=== PATIENT | female | born 1945 | race Two or more races ===

== ENCOUNTER 2018-06-07 11:55 | Inpatient (IN) | payer MEDICARE, MEDICAID ==
[~2018-06-07] VITALS: Ht 165.1 cm; Wt 74.0 kg
[2018-06-07] MEDS ORDERED: SODIUM CHLORIDE FLUSH 10ML SYR IVF ONE (13:30)
[2018-06-07 13:39] LABS: BASOPHILS # (AUTO) 0.02 x10^3/uL (0-0.1); BASOPHILS % (AUTO) 0 % (0-1); EOSINOPHILS # (AUTO) 0.03 x10^3/uL (0-0.4); EOSINOPHILS % (AUTO) 0 % (1-7); LYMPHOCYTES % (AUTO) 19 % (22-44); MD NO; MEAN CORPUSCULAR HEMOGLOBIN 29.2 pg (27.0-34.8); MEAN CORPUSCULAR HGB CONC 33.5 g/dL (32.4-35.8); MEAN CORPUSCULAR VOLUME 87.1 fL (80-100); MEAN PLATELET VOLUME 8.1 fL (7.4-10.4); MONOCYTES # (AUTO) 0.32 x10^3/uL (0.2-0.8); MONOCYTES % (AUTO) 3 % (2-9); NEUTROPHILS # (AUTO) 7.26 x10^3/uL (1.8-6.8); NEUTROPHILS % (AUTO) 77 % (42-75); PLATELET COUNT 208 x10^3/uL (130-400); RED BLOOD COUNT 4.91 x10^6/uL (3.82-5.3); RED CELL DISTRIBUTION WIDTH 14.4 % (9.6-15.2)
[2018-06-07 13:46] LABS: ANION GAP 8 mmol/L (5-15); CALCIUM 8.7 mg/dL (8.5-10.1); CHLORIDE 109 mmol/L (98-107); CREATININE 0.47 mg/dL (0.55-1.02)
[2018-06-07] MEDS ORDERED: DOCUSATE 100 MG CAPSULE PO PRN (14:30)
[2018-06-07] MEDS ORDERED: POLYETHYLENE GLYCOL 17 GM PACKET PO PRN (14:30)
[2018-06-07] MEDS ORDERED: ONDANSETRON 2MG/ML, 2ML IVPush PRN (14:30)
[2018-06-07] MEDS ORDERED: PROMETHAZINE 25 MG/ML, 1ML IM PRN (14:30)
[2018-06-07] MEDS ORDERED: HYDROcodone/APAP 5/325 TABLET PO PRN (14:30)
[2018-06-07] MEDS ORDERED: ACETAMINOPHEN 325 MG TABLET PO PRN (14:30)
[2018-06-07] MEDS ORDERED: BISACODYL 10 MG SUPP PR PRN (14:30)
[2018-06-07] MEDS ORDERED: ONDANSETRON ODT 4 MG PO PRN (14:30)
[2018-06-07] MEDS ORDERED: morphine SULFATE 10 MG/ML, 1ML IVPush PRN (14:30)
[2018-06-07] MEDS ORDERED: LABETALOL 5MG/ML, 20ML IVPush PRN (14:30)
[2018-06-07] MEDS ORDERED: hydrALAzine 20 MG/ML, 1ML IVPush PRN (14:30)
[2018-06-07] MEDS ORDERED: FLUO10TA PO (14:42)
[2018-06-07] MEDS ORDERED: IBUP-1223 PO (14:42)
[2018-06-07] MEDS ORDERED: LISI1TAB3 PO (14:42)
[2018-06-07] MEDS: SODIUM CHLORIDE 0.9% 1,000 ML IV SCH (15:14)
[2018-06-07 15:29] LABS: FREE T4 (FREE THYROXINE) 1.2 ng/dL (0.76-1.46); THYROID STIMULATING HORMONE 0.955 mIU/L (0.358-3.740)
[2018-06-07 15:30] VITALS: BP 127/77
[2018-06-07] MEDS ORDERED: FENTANYL PF 100 MCG/2ML ONE ×2 (17:37→18:57)
[2018-06-07] MEDS ORDERED: MIDAZOLAM 1 MG/ML, 2ML ONE (17:37)
[2018-06-07] MEDS ORDERED: DEXAMETHASONE 4 MG/ML, 1ML ONE ×2 (17:37)
[2018-06-07] MEDS ORDERED: PROPOFOL 10 MG/ML, 20ML ONE (17:37)
[2018-06-07] MEDS ORDERED: CEFAZOLIN 1,000 MG ONE ×2 (17:37)
[2018-06-07] MEDS ORDERED: ONDANSETRON 2MG/ML, 2ML ONE (17:37)
[2018-06-07] MEDS ORDERED: ROCURONIUM 10MG/ML,5ML ONE (17:38)
[2018-06-07] MEDS ORDERED: SUCCINYLCHOLINE 20 MG/ML, 10ML ONE (17:38)
[2018-06-07] MEDS ORDERED: LIDOCAINE-MPF 2% ,5ML ONE (17:39)
[2018-06-07] MEDS ORDERED: LABETALOL 5MG/ML, 20ML IV PRN (18:30)
[2018-06-07] MEDS ORDERED: HYDROmorphone 1 MG/ML, 1ML IV PRN (18:30)
[2018-06-07] MEDS ORDERED: MEPERIDINE/PF 25MG/0.5ML IVPush PRN (18:30)
[2018-06-07] MEDS ORDERED: DIAZEPAM 5 MG/ML, 2ML IVPush PRN (18:30)
[2018-06-07] MEDS ORDERED: OXYcodone 5 MG/5 ML ORAL.SOL UDC PO PRN (18:30)
[2018-06-07] MEDS ORDERED: METOCLOPRAMIDE 5 MG/ML, 2ML IV PRN (18:30)
[2018-06-07] MEDS ORDERED: hydrALAzine 20 MG/ML, 1ML IV PRN (18:30)
[2018-06-07] MEDS ORDERED: OXYcodone 5 MG/5 ML ORAL.SOL UDC ONE (18:57)
[2018-06-07] MEDS ORDERED: CEFAZOLIN PMX 2GM/50ML 50 ML IVPB SCH (19:00)
[2018-06-07] MEDS: FENTANYL PF 100 MCG/2ML IV PRN ×2 (19:04→19:11)
[2018-06-07] MEDS ORDERED: HYDROmorphone 2 MG/ML, 1ML ONE (19:13)
[2018-06-07 20:44] VITALS: BP 117/52
[2018-06-08 00:23] VITALS: BP 115/78
[2018-06-08] MEDS: CEFAZOLIN 2,000 MG in SODIUM CHLORIDE 0.9% 50 ML IV SCH ×2 (00:28→08:42)
[2018-06-08 04:24] VITALS: BP 112/70
[2018-06-08] MEDS: SODIUM CHLORIDE 0.9% 1,000 ML IV SCH (05:40)
[2018-06-08] MEDS ORDERED: ENOXAPARIN 40 MG/0.4 ML SQ SCH (06:00)
[2018-06-08 06:28] LABS: BASOPHILS # (AUTO) 0.01 x10^3/uL (0-0.1); BASOPHILS % (AUTO) 0 % (0-1); EOSINOPHILS % (AUTO) 0 % (1-7); LYMPHOCYTES # (AUTO) 0.78 x10^3/uL (1-3.4); LYMPHOCYTES % (AUTO) 11 % (22-44); MD NO; MEAN CORPUSCULAR HEMOGLOBIN 29.8 pg (27.0-34.8); MEAN CORPUSCULAR VOLUME 87.9 fL (80-100); MEAN PLATELET VOLUME 8.5 fL (7.4-10.4); MONOCYTES # (AUTO) 0.15 x10^3/uL (0.2-0.8); MONOCYTES % (AUTO) 2 % (2-9); NEUTROPHILS # (AUTO) 6.15 x10^3/uL (1.8-6.8); NEUTROPHILS % (AUTO) 87 % (42-75); PLATELET COUNT 194 x10^3/uL (130-400); RED BLOOD COUNT 4.45 x10^6/uL (3.82-5.3); RED CELL DISTRIBUTION WIDTH 14.4 % (9.6-15.2)
[2018-06-08 06:32] LABS: ALBUMIN 2.7 g/dL (3.4-5.0); ANION GAP 8 mmol/L (5-15); CALCIUM 8.3 mg/dL (8.5-10.1); CHLORIDE 111 mmol/L (98-107)
[2018-06-08 06:35] LABS: ALANINE AMINOTRANSFERASE 35 U/L (12-78); ALKALINE PHOSPHATASE 54 U/L (45-117); BILIRUBIN,TOTAL 0.5 mg/dL (0.2-1.0); CHOL/HDL RATIO 3.4; CHOLESTEROL, TOTAL 158 mg/dL (140-239); CREATININE 0.43 mg/dL (0.55-1.02); HDL CHOL % 29 % (28-40); HDL CHOLESTEROL (DIRECT) 46 mg/dL (40-60); LDL CHOLESTEROL,CALCULATED 102 mg/dL (54-169); LDL/HDL RATIO 2.2 (0.5-3.0); TOTAL PROTEIN 6.9 g/dL (6.4-8.2); TRIGLYCERIDES 50 mg/dL (50-200); VLDL CHOLESTEROL 10 mg/dL (0-25)
[2018-06-08 07:46] VITALS: BP 98/62
[2018-06-08] MEDS ORDERED: IBUPROFEN 200 MG TABLET PO PRN (11:00)
[2018-06-08] MEDS ORDERED: ENOX40SY4 SQ (11:57)
[2018-06-08 13:24] VITALS: BP 100/59
== END 2018-06-08 14:17 | disposition home health service (06) | DRG 480 ==
LOC: OR 14:02 → EDIP 14:18 → 4NOR 14:51 → DCLOUNGE 06-08 13:55
PROVIDERS: ADMIT Internal Medicine; ATTEND Internal Medicine
PROC: 0QH634Z Insertion of Internal Fixation Device into Right Upper Femur, Percutaneous Approach (ICD-10-PCS; principal; 2018-06-07 17:15)
DX: S72.001A Fracture of unspecified part of neck of right femur, initial encounter for closed fracture (principal); J96.01 Acute respiratory failure with hypoxia; E44.0 Moderate protein-calorie malnutrition; M89.8X8 Other specified disorders of bone, other site; W01.0XXA Fall on same level from slipping, tripping and stumbling without subsequent striking against object, initial encounter; F41.9 Anxiety disorder, unspecified; G89.29 Other chronic pain; M06.9 Rheumatoid arthritis, unspecified; I10 Essential (primary) hypertension; Y93.01 Activity, walking, marching and hiking; Z88.8 Allergy status to other drugs, medicaments and biological substances; Z88.6 Allergy status to analgesic agent; Z88.1 Allergy status to other antibiotic agents; Z88.5 Allergy status to narcotic agent; Z79.899 Other long term (current) drug therapy; Z68.27 Body mass index [BMI] 27.0-27.9, adult; Y92.89 Other specified places as the place of occurrence of the external cause; Y99.8 Other external cause status
CPT/HCPCS: 36415; 71045; 76001; 80048; 80053; 80061; 82040; 83036; 83735; 84439; 84443; 85025; 93005; C1713; G0378; J0690; J1100; J1170; J1650; J2250; J2405; J2704; J3010; J3490; C1769; J0330; J7030

== ENCOUNTER 2019-09-12 21:12 | Emergency (ER) | payer MEDICARE, MEDICAID ==
[~2019-09-12] VITALS: Ht 165.1 cm; Wt 75.0 kg
[~2019-09-12 21:12] MED LIST: ENOX40SY4 SQ; FLUO10TA PO; IBUP-1223 PO; LISI1TAB23 PO
[2019-09-12] MEDS ORDERED: SODIUM CHLORIDE 0.9% 1,000ML IVBOLUS ONE (22:00)
[2019-09-12] MEDS ORDERED: SODIUM CHLORIDE FLUSH 10ML SYR IVF ONE (22:00)
[2019-09-12] MEDS ORDERED: PLEASE ENTER HEIGHT AND WEIGHT MC SCH (22:00)
[2019-09-12] MEDS ORDERED: MAALOX/HYOSCYAMINE/LIDOCAINE 45 ML BTL PO ONE (22:00)
[2019-09-12] MEDS ORDERED: ONDANSETRON 2MG/ML, 2ML IVPush ONE (22:00)
[2019-09-12 22:10] LABS: BASOPHILS # (AUTO) 0.01 x10^3/uL (0-0.1); BASOPHILS % (AUTO) 0 % (0-1); EOSINOPHILS % (AUTO) 0 % (1-7); LYMPHOCYTES # (AUTO) 0.69 x10^3/uL (1-3.4); LYMPHOCYTES % (AUTO) 16 % (22-44); MD NO; MEAN CORPUSCULAR HEMOGLOBIN 29.6 pg (27.0-34.8); MEAN CORPUSCULAR HGB CONC 33.9 g/dL (32.4-35.8); MEAN CORPUSCULAR VOLUME 87.4 fL (80-100); MEAN PLATELET VOLUME 7.7 fL (7.4-10.4); MONOCYTES # (AUTO) 0.23 x10^3/uL (0.2-0.8); MONOCYTES % (AUTO) 5 % (2-9); NEUTROPHILS # (AUTO) 3.44 x10^3/uL (1.8-6.8); NEUTROPHILS % (AUTO) 79 % (42-75); PLATELET COUNT 188 x10^3/uL (130-400); RED BLOOD COUNT 5.06 x10^6/uL (3.82-5.3); RED CELL DISTRIBUTION WIDTH 14.4 % (9.6-15.2)
[2019-09-12 22:22] LABS: ALANINE AMINOTRANSFERASE 35 U/L (12-78); ALBUMIN 2.8 g/dL (3.4-5.0); ANION GAP 5 mmol/L (5-15); CALCIUM 8.4 mg/dL (8.5-10.1); CHLORIDE 109 mmol/L (98-107); CREATININE 0.47 mg/dL (0.55-1.02)
[2019-09-12 22:24] LABS: ALKALINE PHOSPHATASE 72 U/L (45-117); TOTAL PROTEIN 7.5 g/dL (6.4-8.2)
[2019-09-12] MEDS ORDERED: ONDANSETRON 2MG/ML, 2ML ONE (22:53)
[2019-09-12] MEDS ORDERED: MAALOX/HYOSCYAMINE/LIDOCAINE 45 ML BTL ONE (23:52)
--- NOTE | 2019-09-13 00:16 | NUR ---
Pt reports her nausea has greatly improved after IV Zofran and IVF. Pt was able to consume her GI cocktail without further N/V. Pt ambulated to bathroom and back.
[2019-09-13 01:02] VITALS: BP 130/90
== END 2019-09-13 01:12 | disposition home or self-care (01) ==
LOC: ED 09-13 00:10
DX: A09 Infectious gastroenteritis and colitis, unspecified (principal); R11.2 Nausea with vomiting, unspecified; I10 Essential (primary) hypertension; M06.9 Rheumatoid arthritis, unspecified
CPT/HCPCS: 36415; 80053; 83690; 85025; 96361; 96374; 99283; J2405; J7030

== ENCOUNTER 2020-07-22 01:10 | Observation (INO) | payer MEDICARE, MEDICAID ==
[~2020-07-22] VITALS: Ht 165.1 cm; Wt 75.0 kg
--- NOTE | 2020-07-22 01:16 | NUR ---
pt came into ed tonight via [facility] for abdominal pain, gassy and cramping for 3 days. pt denies vomiting/diarrhea but states "i have an upset stomach" denies gu changes. pt states she has a hx of gastritis, no abdominal sx history. lower quadrant pain, primarily on the right side. wctm pt placed on spo2/bp/ecg monitoring. joe andrew at bs for eval and poc. assisted to restroom to obtain urine sample at this time.
[2020-07-22] MEDS ORDERED: SODIUM CHLORIDE FLUSH 10ML SYR IVF ONE (01:30)
--- NOTE | 2020-07-22 01:36 | NUR ---
bedside report to Serina CAO, pt care transferred at this time.
--- NOTE | 2020-07-22 01:39 | NUR ---
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
[2020-07-22 02:11] LABS: BASOPHILS % (AUTO) 0 % (0-1); EOSINOPHILS % (AUTO) 0 % (1-7); LYMPHOCYTES % (AUTO) 17 % (22-44); MEAN CORPUSCULAR HEMOGLOBIN 29.7 pg (27.0-34.8); MEAN CORPUSCULAR HGB CONC 34.3 g/dL (32.4-35.8); MEAN PLATELET VOLUME 8.3 fL (7.4-10.4); MONOCYTES % (AUTO) 6 % (2-9); NEUTROPHILS % (AUTO) 77 % (42-75); PLATELET COUNT 214 x10^3/uL (130-400); RED BLOOD COUNT 5.04 x10^6/uL (3.82-5.3)
[2020-07-22 02:12] LABS: MICROSCOPIC INDICATED
[2020-07-22 02:14] LABS: MD NO
--- NOTE | 2020-07-22 02:14 | NUR ---
CT PENDING LAB/CREATINE.
[2020-07-22 02:20] LABS: ALANINE AMINOTRANSFERASE 35 U/L (12-78); ALBUMIN 3.2 g/dL (3.4-5.0); ANION GAP 7 mmol/L (5-15); CALCIUM 8.9 mg/dL (8.5-10.1); CHLORIDE 107 mmol/L (98-107); CREATININE 0.49 mg/dL (0.55-1.02)
[2020-07-22 02:22] LABS: ALKALINE PHOSPHATASE 86 U/L (45-117); BILIRUBIN,TOTAL 1.4 mg/dL (0.2-1.0); TOTAL PROTEIN 8.1 g/dL (6.4-8.2)
[2020-07-22] MEDS ORDERED: OMNIPAQUE 350 MG/ML, 100ML BOTTLE ONE (02:51)
--- NOTE | 2020-07-22 03:13 | NUR ---
BREAK RN: PT. RETURNED FROM CT; TO BR VIA W/C AND BACK TO [facility]. ALL MONITORS REPLACED. REPORT BACK TO KILEY KURTZ TO RE-ASSUME CARE OF PT.
[2020-07-22] MEDS ORDERED: CEFTRIAXONE PMX 1GM/50ML 50 ML IV ONE (04:00)
--- NOTE | 2020-07-22 04:10 | NUR ---
PER DR DE LA ROSA NO CULTURES PRIOR TO ABX
[2020-07-22] MEDS ORDERED: CEFTRIAXONE PMX 1GM/50ML 50 ML ONE (04:11)
--- NOTE | 2020-07-22 04:16 | NUR ---
ABX STARTED AT THIS TIME
[2020-07-22] MEDS ORDERED: EPINEPHRINE 1 MG/ML, 1ML ONE (04:27)
[2020-07-22] MEDS ORDERED: BUPIVACAINE/PF 0.5% ONE (04:27)
--- NOTE | 2020-07-22 04:53 | NUR ---
ABX FINISHED, MED REC DONE AND PHARMACY VERIFIED WITH PT AND FAMILY
--- NOTE | 2020-07-22 05:00 | NUR ---
REPORT TO SHYANNE FROM OR ALL QUESTIONS ADDRESSED.
[2020-07-22] MEDS ORDERED: BUPIVACAINE/PF-EPI 0.5% 1:200K INFIL ONE ×2 (05:42→07:32)
[2020-07-22 06:24] VITALS: BP 151/96
--- NOTE | 2020-07-22 06:24 | NUR ---
PT RESTING ON GURNEY FAMILY AT BEDSIDE AWAITING OR TIME.
[2020-07-22] MEDS ORDERED: CHLORHEXIDINE 15 ML UDC ONE (06:28)
[2020-07-22] MEDS ORDERED: CHLORHEXIDINE 15 ML UDC MM ONE (06:30)
--- NOTE | 2020-07-22 06:30 | NUR ---
PT TO OR AT THIS TIME WITH ALL BELONGINGS AND FAMILY MEMBER AT BEDSIDE.
[2020-07-22] MEDS ORDERED: BUPIVACAINE/EPI 0.5% 1:200K ONE (06:34)
[2020-07-22] MEDS ORDERED: FENTANYL PF 250 MCG/5ML ONE (06:56)
[2020-07-22] MEDS ORDERED: PROPOFOL 50 ML ONE (06:56)
[2020-07-22] MEDS ORDERED: LACTATED RINGERS 1,000 ML IV SCH (07:00)
[2020-07-22] MEDS ORDERED: DEXAMETHASONE 4 MG/ML, 5ML ONE (07:27)
[2020-07-22] MEDS ORDERED: PROPOFOL 10 MG/ML, 20ML ONE (07:27)
[2020-07-22] MEDS ORDERED: SUCCINYLCHOLINE 20 MG/ML, 10ML ONE (07:27)
[2020-07-22] MEDS ORDERED: ROCURONIUM 10MG/ML,5ML ONE (07:27)
[2020-07-22] MEDS ORDERED: EPHEDRINE 50 MG/ML, 1ML IM PRN (08:00)
[2020-07-22] MEDS ORDERED: morphine SULFATE 10 MG/ML, 1ML IVPush PRN (08:00)
[2020-07-22] MEDS ORDERED: EPHEDRINE 50 MG/ML, 1ML IVPush PRN (08:00)
[2020-07-22] MEDS ORDERED: MEPERIDINE/PF 25MG/0.5ML IVPush PRN (08:00)
[2020-07-22] MEDS ORDERED: ONDANSETRON 2MG/ML, 2ML IVPush PRN (08:00)
[2020-07-22] MEDS ORDERED: DIPHENHYDRAMINE 50 MG/ML, 1ML IVPush PRN (08:00)
[2020-07-22] MEDS ORDERED: PROMETHAZINE 25 MG/ML, 1ML IVPush PRN (08:00)
[2020-07-22] MEDS ORDERED: DIAZEPAM 5 MG/ML, 2ML IVPush PRN (08:00)
[2020-07-22] MEDS ORDERED: FENTANYL PF 100 MCG/2ML ONE ×2 (08:15→09:20)
[2020-07-22] MEDS ORDERED: OXYcodone 5 MG/5 ML ORAL.SOL UDC ONE (08:16)
[2020-07-22] MEDS: FENTANYL PF 100 MCG/2ML IV PRN ×3 (08:17→09:10)
[2020-07-22] MEDS: OXYcodone 5 MG/5 ML ORAL.SOL UDC PO PRN ×2 (08:39→09:14)
[2020-07-22] MEDS ORDERED: HYDROmorphone 1 MG/ML, 1ML INJ ONE (09:20)
[2020-07-22] MEDS ORDERED: MEPERIDINE/PF 25MG/ML,1ML ONE (09:29)
[2020-07-22] MEDS ORDERED: KETOROLAC 30 MG/1 ML IM PRN (11:30)
== END 2020-07-22 12:30 | disposition home or self-care (01) ==
LOC: ED 03:29 → EDIP 05:51 → INTOOBSV 05:51
PROVIDERS: ADMIT Surgery; ATTEND Surgery
DX: K35.80 Unspecified acute appendicitis (principal); Z20.822 Contact with and (suspected) exposure to COVID-19; K80.20 Calculus of gallbladder without cholecystitis without obstruction; I10 Essential (primary) hypertension; M06.9 Rheumatoid arthritis, unspecified; M81.0 Age-related osteoporosis without current pathological fracture; Z79.899 Other long term (current) drug therapy
CPT/HCPCS: 36415; 44970; 74177; 80053; 81001; 83690; 85025; 87086; 87635; 88304; 93005; 96365; 99285; G0378; J0171; J0330; J0696; J1100; J1885; J2175; J2704; J3010; J7120; Q9967; S0020

== ENCOUNTER → 2020-09-05 | Outpatient (CLI) | payer MEDICARE, MEDICAID ==
[2020-09-05 14:59] LABS: BASOPHILS % (AUTO) 0 % (0-1); EOSINOPHILS % (AUTO) 1 % (1-7); LYMPHOCYTES % (AUTO) 37 % (22-44); MEAN CORPUSCULAR HEMOGLOBIN 29.4 pg (27.0-34.8); MONOCYTES % (AUTO) 7 % (2-9); NEUTROPHILS % (AUTO) 55 % (42-75); PLATELET COUNT 206 x10^3/uL (130-400); RED BLOOD COUNT 4.89 x10^6/uL (3.82-5.3); RED CELL DISTRIBUTION WIDTH 16.1 % (9.6-15.2)
[2020-09-05 15:01] LABS: MD NO
[2020-09-05 15:04] LABS: ALANINE AMINOTRANSFERASE 28 U/L (12-78); ALBUMIN 3.2 g/dL (3.4-5.0); ANION GAP 6 mmol/L (5-15); CALCIUM 8.7 mg/dL (8.5-10.1); CHLORIDE 113 mmol/L (98-107); CREATININE 0.45 mg/dL (0.55-1.02)
[2020-09-05 15:06] LABS: ALKALINE PHOSPHATASE 76 U/L (45-117); BILIRUBIN,TOTAL 1.2 mg/dL (0.2-1.0); TOTAL PROTEIN 7.5 g/dL (6.4-8.2)
== END | disposition home or self-care (01) ==
LOC: LAB 14:00
PROVIDERS: ATTEND Family Medicine
DX: R73.9 Hyperglycemia, unspecified (principal); R10.13 Epigastric pain
CPT/HCPCS: 36415; 80053; 83036; 85025

== ENCOUNTER 2020-11-13 10:35 | Emergency (ER) | payer MEDICARE, MEDICAID ==
[~2020-11-13] VITALS: Ht 162.6 cm; Wt 65.0 kg
[2020-11-13] MEDS ORDERED: ACETAMINOPHEN 325 MG TABLET PO ONE (11:00)
--- NOTE | 2020-11-13 11:01 | NUR ---
RECEIVED REPORT FROM SRIDHAR CAO. ASSUMING CARE AT THIS TIME. PT RESTING COMFORTABLY ON GURNEY. GODWIN.
[2020-11-13] MEDS ORDERED: ACETAMINOPHEN 325 MG TABLET ONE (11:04)
--- NOTE | 2020-11-13 11:06 | NUR ---
MEDS ADMIN PER SEP.
--- NOTE | 2020-11-13 11:46 | NUR ---
PT GOING TO CT.
[2020-11-13 11:57] VITALS: BP 160/94
== END 2020-11-13 12:50 | disposition home or self-care (01) ==
LOC: ED 12:44
DX: S09.90XA Unspecified injury of head, initial encounter (principal); I10 Essential (primary) hypertension; M06.9 Rheumatoid arthritis, unspecified; W01.0XXA Fall on same level from slipping, tripping and stumbling without subsequent striking against object, initial encounter; Y93.89 Activity, other specified; Y92.89 Other specified places as the place of occurrence of the external cause; Y99.8 Other external cause status
CPT/HCPCS: 70450; 99284